=== PATIENT | female | born 1970 | race African-American/Black ===

== ENCOUNTER 2019-03-21 15:10 | Emergency (ER) | payer BC ==
[2019-03-21] MEDS ORDERED: ACETAMINOPHEN 325 MG TABLET (FP) ONE (15:42)
[2019-03-21] MEDS: ACETAMINOPHEN 325 MG TABLET (FP) PO ONE ×2 (15:45→17:04)
[2019-03-21 15:47] VITALS: BP 127/68; BMI 25.0
[2019-03-21] MEDS ORDERED: OSELTAMIVIR PHOSPHATE 75 MG CAPSULE ONE (16:08)
[2019-03-21] MEDS ORDERED: OSELTAMIVIR PHOSPHATE 75 MG CAPSULE PO ONE (16:08)
--- NOTE | 2019-03-21 16:11 | PDOC ---
History of Present Illness - General Chief Complaint: Respiratory Stated Complaint: COUGH, SORE THROAT, GEN ACHINESS Time Seen by Provider: 03/21/19 15:16 History Source: Patient Exam Limitations: No Limitations - History of Present Illness Initial Comments: 03/21/19 16:09 49y F no pmhx presents with complaint of body aches/fever since yesterday. pt endorses mild dry non productive cough starting last night as well as a sore throat and malase. Pt denies any wilson, n/v, abd pain, back pain, cp, leg swelling , ear pain, diarrhea, dysuria, frequency. Denies any famillial sick contacts, but notes 'everyone is sick'. 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 ROS Constitutional - +Fever, no reported Chills, HEENT: + sore throat no reported vision changes, Respiratory: +cough,no reported sob, hemoptysis Cardiac: no reported chest pain, palpitations, light headedness, leg swelling Abd/GI: no reported abd pain, nausea, vomiting, blood per rectum, melena, diarrhea : no reported dysuria, frequency, discharge Musculskelatal - no reported back pain, joint swelling skin - no reported bruising, erythema, rash neurological: no reported headache, numbness, focal weakness, tingling, ataxia, hematologic: no reported easy bruising, easy bleeding Physical Exam GENERAL: The patient is awake, alert, and fully oriented, Nontoxic - in no acute distress. HEAD: Normocephalic, atraumatic. EYES: extraocular movements intact, sclera anicteric, conjunctiva clear. ENT: Normal voice, dry mucous membranes. posterior pharynx non erytnemadous, without exudates NECK: Normal range of motion, supple LUNGS: Breath sounds equal, clear to auscultation bilaterally. No wheezes, no rhonchi, no rales. HEART: tachycardic, normal S1 and S2 without murmur, rub or gallop. ABDOMEN: Soft, nontender, No guarding, no rebound. No CVA tenderness EXTREMITIES: Normal range of motion, no edema. NEUROLOGICAL: No facial assymetry, Normal speech, PSYCH: Normal mood, normal affect. SKIN: hot to touch, Dry, normal turgor, Suspect flulike illness. We will treat the patient with Tamiflu, Tylenol for fever. Patient noted tachycardic but suspect it si due to her fever. Supportive care at home. Return precautions were discussed I discussed the physical exam findings, ancillary test results and final diagnoses with the patient. I answered all of the patient's questions. The patient was satisfied with the care received and felt comfortable with the discharge plan and treatment plan. The patient will call their primary care physician within 24 hours to arrange follow-up and will return to the Emergency Department with any new, persistent or worsening symptoms. Past History - Past Medical History Allergies/Adverse Reactions: Allergies Allergy/AdvReac Type Severity Reaction Status Date / Time No Known Allergies Allergy Verified 03/21/19 15:12 Home Medications: Ambulatory Orders Ibuprofen [Motrin -] 400 mg PO ONCE 03/21/19 Multivitamin [Multiple Vitamins] 1 each PO DAILY 03/21/19 Oseltamivir Phosphate [Tamiflu -] 75 mg PO BID #9 capsule 03/21/19 COPD: No - Psycho Social/Smoking Cessation Hx Smoking History: Never smoked Have you smoked in the past 12 months: No Information on smoking cessation initiated: No Hx Alcohol Use: No *Physical Exam - Vital Signs Last Vital Signs Temp Pulse Resp BP Pulse Ox 102.8 F H 124 H 20 127/68 97 03/21/19 15:10 03/21/19 15:10 03/21/19 15:10 03/21/19 15:10 03/21/19 15:10 ED Treatment Course - Medications Given in the ED: ED Medications Discontinued Medications Generic Name Dose Route Start Last Admin Trade Name Roz PRN Reason Stop Dose Admin Acetaminophen 650 mg 03/21/19 15:37 03/21/19 15:45 Tylenol - PO 03/21/19 15:38 650 mg ONCE ONE Administration Discharge - Discharge Information Problems reviewed: Yes Clinical Impression/Diagnosis: Flu-like symptoms Condition: Improved Disposition: HOME - Admission No - Additional Discharge Information Prescriptions: Oseltamivir Phosphate [Tamiflu -] 75 mg PO BID #9 capsule - Follow up/Referral - Patient Discharge Instructions Patient Printed Discharge Instructions: DI for Influenza -- Adult Additional Instructions: I suspect that your symptoms are due to influenza. Take the Tamiflu as prescribed. Take Motrin and Tylenol as needed for fever and body aches. Make sure you are staying well-hydrated. If you have worsening shortness of breath, difficulty tolerating oral intake or any other concerns return to the ER for further evaluation. - Post Discharge Activity Work/Back to School Note: Back to Work
[2019-03-21] MEDS ORDERED: ACETAMINOPHEN 500 MG TABLET (FP) PO ONE (16:48)
[2019-03-21 17:17] VITALS: PULSE 108; TEMP 101
== END 2019-03-21 17:20 | disposition home or self-care (01) ==
LOC: FER 15:10
DX: J11.1 Influenza due to unidentified influenza virus with other respiratory manifestations (principal)
CPT/HCPCS: 99283-25